=== PATIENT | male | born 1975 | race Two or more races ===

== ENCOUNTER 2019-04-20 06:10 | Day surgery (SDC) | payer OTHER | END 2019-04-20 11:10 | disposition home or self-care (01) | LOC: AMB-ENDOS 06:10 → ADM 13:45 → AMB-ENDOS 13:45 | DX: K57.32 Diverticulitis of large intestine without perforation or abscess without bleeding (principal); K57.30 Diverticulosis of large intestine without perforation or abscess without bleeding; K64.1 Second degree hemorrhoids ==

== ENCOUNTER 2019-05-03 17:11 | Inpatient (IN) | payer OTHER ==
[~2019-05-03] VITALS: Ht 182.9 cm; Wt 113.4 kg
[2019-05-15] MEDS ORDERED: ZESTRIL40 M1 PO (14:39)
[2019-05-15] MEDS ORDERED: HYDROCHLO PO (14:39)
[2019-05-15] MEDS ORDERED: PANTOPRAZOLE SO40 MG PO (14:39)
[2019-05-15] MEDS ORDERED: ZOCOR40 MG PO (14:40)
[2019-05-15] MEDS ORDERED: PROBIOTIC PO (14:40)
[2019-05-15] MEDS ORDERED: COLACE CLEAR50 MG PO (14:41)
[2019-05-15] MEDS ORDERED: [UNRECOGNIZED DRUG - OTHER] PO (14:43)
[2019-05-22] MEDS ORDERED: PROBIOTIC1 EACH PO (10:28)
[2019-05-22] MEDS ORDERED: HYDROCHLOROTHIA50 MG PO (10:28)
[2019-05-22] MEDS ORDERED: MELATONIN5 M2 (10:32)
== END 2019-05-25 11:43 | disposition home or self-care (01) | DRG 331 ==
LOC: O/R 05-22 06:00 → SURH 05-22 06:00 → SURG 05-22 07:00 → SURH 05-22 15:22
PROVIDERS: ADMIT Colon & Rectal Surgery
PROC: 0DJD8ZZ Inspection of Lower Intestinal Tract, Via Natural or Artificial Opening Endoscopic (ICD-10-PCS; 2019-05-22)
PROC: 4A033R1 Measurement of Arterial Saturation, Peripheral, Percutaneous Approach (ICD-10-PCS; 2019-05-22)
PROC: 0DTN4ZZ Resection of Sigmoid Colon, Percutaneous Endoscopic Approach (ICD-10-PCS; principal; 2019-05-22 07:00)
DX: K57.32 Diverticulitis of large intestine without perforation or abscess without bleeding (principal); I11.9 Hypertensive heart disease without heart failure